=== PATIENT | female | born 1950 | race American Indian/Alaskan Native ===

== ENCOUNTER 2018-11-05 22:09 | Inpatient (IN) | payer MEDICARE, OTHER ==
[2018-11-05] MEDS ORDERED: TYLENOL PO ONE (22:53)
--- NOTE | 2018-11-05 23:50 | XRay Report ---
FINAL REPORT PROCEDURE: XR CHEST ROUTINE 2V TECHNIQUE: PA and lateral chest radiographs were obtained. CPT 96045 HISTORY: cough COMPARISON: 09/22/2016 FINDINGS: Heart: Normal. Mediastinum/Vessels: Normal. Lungs/Pleural space: Mild infiltrate left lower lung. Bony thorax: No acute osseous abnormality. Other: IMPRESSION: Slight infiltrate left lower lung.
--- NOTE | 2018-11-06 01:25 | Emergency Department Report ---
- General Chief Complaint: Chest Pain Stated Complaint: CHEST PAIN/COUGH Time Seen by Provider: 11/06/18 01:06 Source: patient Mode of arrival: Ambulatory Limitations: No Limitations - History of Present Illness Initial Comments: 68-year-old -[place]in[place] female presents to the emergency room for sore throat, chest pain with cough and diarrhea. Patient reports that this started on Tuesday. Patient reports that she last had Motrin on Tuesday night. Patient has a past medical history of insulin-dependent diabetes and hypertension, [place], COPD, stent placement. In triage patient had a low-grade fever of 99.7. Patient reports that she took gabapentin for pain management. Patient complains of a cough. MD Complaint: cough -: days(s) (2) Severity scale (0 -10): 10 Quality: sharp, aching Consistency: constant Improves With: nothing Worsens With: deep breaths Associated Symptoms: fever, sore throat, cough, chest pain, shortness of breath, diarrhea, hoarseness - Related Data Home Medications Medication Instructions Recorded Confirmed Last Taken Aspirin [Aspirin TAB] 81 mg PO QDAY 11/06/18 11/06/18 Unknown Previous Rx's Medication Instructions Recorded Last Taken Type AtorvaSTATin [Lipitor] 40 mg PO QHS #30 tablet 03/13/16 1 Day Ago Rx ~09/21/16 40 Clopidogrel [Plavix] 75 mg PO DAILY #30 tablet 03/13/16 1 Day Ago Rx ~09/21/16 75 Insulin Glargine,Hum.rec.anlog 18 unit SQ QHS #1000 units 03/13/16 1 Day Ago Rx [Lantus Solostar] ~09/21/16 18 Insulin Lispro [HumaLOG VIAL] 15 unit SQ TIDAC #1000 units 03/13/16 1 Day Ago Rx ~09/21/16 15 Lisinopril [Zestril TAB] 10 mg PO QDAY #30 tablet 03/13/16 1 Day Ago Rx ~09/21/16 10 Allergies Allergy/AdvReac Type Severity Reaction Status Date / Time metformin Allergy Unknown Verified 05/18/16 21:30 ED Review of Systems ROS: Stated complaint: CHEST PAIN/COUGH Other details as noted in HPI Constitutional: chills, fever ENT: throat pain Respiratory: cough, shortness of breath Cardiovascular: chest pain Gastrointestinal: diarrhea ED Past Medical Hx - Past Medical History Hx Hypertension: Yes Hx Heart Attack/AMI: Yes Hx Congestive Heart Failure: Yes Hx Diabetes: Yes Hx Asthma: Yes Hx COPD: Yes Additional medical history: vertigo - Surgical History Hx Coronary Stent: Yes Hx Cholecystectomy: Yes Hx Breast Surgery: Yes (lt mastectomy) Additional Surgical History: left lumpectomy,. cardiac stents - Social History Smoking Status: Never Smoker Substance Use Type: None - Medications Home Medications: Home Medications Medication Instructions Recorded Confirmed Last Taken Type AtorvaSTATin [Lipitor] 40 mg PO QHS #30 tablet 03/13/16 11/06/18 1 Day Ago Rx ~09/21/16 40 Clopidogrel [Plavix] 75 mg PO DAILY #30 tablet 03/13/16 11/06/18 1 Day Ago Rx ~09/21/16 75 Insulin Glargine,Hum.rec.anlog 18 unit SQ QHS #1000 units 03/13/16 11/06/18 1 Day Ago Rx [Lantus Solostar] ~09/21/16 18 Insulin Lispro [HumaLOG VIAL] 15 unit SQ TIDAC #1000 units 03/13/16 11/06/18 1 Day Ago Rx ~09/21/16 15 Lisinopril [Zestril TAB] 10 mg PO QDAY #30 tablet 03/13/16 11/06/18 1 Day Ago Rx ~09/21/16 10 Aspirin [Aspirin TAB] 81 mg PO QDAY 11/06/18 11/06/18 Unknown History ED Physical Exam - General Limitations: No Limitations General appearance: alert, in no apparent distress - Head Head exam: Present: atraumatic, normocephalic - Eye Eye exam: Present: EOMI - Expanded ENT Exam Expanded Mouth exam: Present: normal external inspection, muffled voice. Absent: droolin g Throat exam: Positive: tonsillar erythema, tonsillomegaly - Neck Neck exam: Present: tenderness, full ROM - Respiratory Respiratory exam: Present: rhonchi (left lower) - Cardiovascular Cardiovascular Exam: Present: tachycardia - GI/Abdominal GI/Abdominal exam: Present: soft, normal bowel sounds. Absent: distended, tenderness - Neurological Exam Neurological exam: Present: alert, oriented X3 - Psychiatric Psychiatric exam: Present: normal affect, normal mood - Skin Skin exam: Present: warm, dry, intact, normal color. Absent: rash ED Course Vital Signs 11/05/18 11/06/18 22:45 03:54 Temperature 99.7 F H 99.4 F Pulse Rate 114 H 117 H Respiratory 18 18 Rate Blood Pressure 157/93 Blood Pressure 141/76 [Right] O2 Sat by Pulse 98 96 Oximetry - Reevaluation(s) Reevaluation #1: 11/06/18 03:[address] King hospitalists for decision to admit patient since she has multiple comorbidities and infiltrates on a left lower lung. ED Medical Decision Making - Lab Data Result diagrams: 11/06/18 01:06 11/06/18 01:06 - Radiology Data Radiology results: report reviewed Patient: JOSSY SHAW MR#: [id number] : 1950 Acct:[id number] Age/Sex: 68 / F ADM Date: 11/05/18 Loc: ED Attending Dr: Ordering Physician: ED MD FAUSTINO Date of Service: 11/05/18 Procedure(s): XR chest routine 2V Accession Number(s): [id number] cc: ED MD FAUSTINO Fluoro Time In Minutes: FINAL REPORT PROCEDURE: XR CHEST ROUTINE 2V TECHNIQUE: PA and lateral chest radiographs were obtained. CPT 01517 HISTORY: cough COMPARISON: 09/22/2016 FINDINGS: Heart: Normal. Mediastinum/Vessels: Normal. Lungs/Pleural space: Mild infiltrate left lower lung. Bony thorax: No acute osseous abnormality. Other: IMPRESSION: Slight infiltrate left lower lung. Transcribed By: [facility] Dictated By: WISAM BARKER MD Electronically Authenticated By: WISAM BARKER MD Signed Date/Time: 11/05/182349 DD/ 48 TD/TT: 11/05/182348 - Medical Decision Making Patient has been evaluated by this provider in fast track. Patient is given tramadol for pain management. Chest x-ray shows slight left lower lung infiltrate Patient has a low-grade fever with a minimal elevation of her WBCs. Spoke to Dr. Rodriguez regarding patient's case. He recommends patient to be admitted called Dr. Fernando lrist to evaluate patient for admission. Critical care attestation.: If time is entered above; I have spent that time in minutes in the direct care of this critically ill patient, excluding procedure time. ED Disposition Clinical Impression: Community acquired pneumonia of left lower lobe of lung Type 2 diabetes mellitus Qualifiers: Diabetes mellitus terminal carman insulin use: with fdc use Diabetes mellitus complication status: with unspecified complications Qualified Code(s): E11.8 - Type 2 diabetes mellitus with unspecified complications Disposition: OP ADMIT IP TO THIS HOSP Is pt being admited?: Yes Does the pt Need Aspirin: Yes Condition: Stable Instructions: Diabetes Mellitus Type 2 in Adults (ED), Community-acquired Pneumonia (ED), Bacterial Pneumonia (ED) Referrals: AMISH JAUREGUI MD [Referring] - 3-5 Days
[2018-11-06] MEDS ORDERED: ULTRAM PO ONE (01:26)
[2018-11-06 01:30] LABS: Basophils # (Auto) 0.1 K/mm3 (0.0-0.1); Basophils % (Auto) 0.4 % (0.0-1.8); Eosinophils # (Auto) 0.2 K/mm3 (0.0-0.4); Hematocrit 34.6 % (30.3-42.9); Hemoglobin 11.9 gm/dl (10.1-14.3); Lymphocytes # (Auto) 2.3 K/mm3 (1.2-5.4); Lymphocytes % (Auto) 19.6 % (13.4-35.0); Mean Corpuscular HGB Conc 34 % (30-34); Mean Corpuscular Volume 89 fl (79-97); Monocytes # (Auto) 0.6 K/mm3 (0.0-0.8); Monocytes % (Auto) 5.3 % (0.0-7.3); Platelet Count 209 K/mm3 (140-440); Red Blood Count 3.89 M/mm3 (3.65-5.03); Red Cell Distribution Width 13.1 % (13.2-15.2)
[2018-11-06 01:54] LABS: Albumin 3.7 g/dL (3.9-5); BUN/Creatinine Ratio 18; Blood Urea Nitrogen 18 mg/dL (7-17); Calcium 9.6 mg/dL (8.4-10.2); Hemolysis Index 202
[2018-11-06 02:06] LABS: Alanine Aminotransferase 13 units/L (7-56)
--- NOTE | 2018-11-06 03:50 | History and Physical Report ---
History of Present Illness Date of examination: 11/06/18 History of present illness: 68-year-old woman with a history of hypertension, diabetes, breast cancer, COPD, coronary artery disease, CHF comes to the emergency room with complaints of hoarseness for 3 weeks. Also complaining of a cough productive of white rough:, Fever and chills. She had diarrhea for 3 days which is now resolved. Also complaining of food getting stuck in her throat, feels like she's going to choke Review of systems Constitutional: no weight loss, chills, fever Ears, eyes, nose, mouth and throat: no nasal congestion, no nasal discharge, no sinus pressure, no vision change, no red eye. Neck: No neck pain or rigidity. Cardiovascular: no palpitations, chest pain Respiratory: no cough, shortness of breath Gastrointestinal: no hematochezia, abdominal pain Genitourinary : no frequency , no hematuria Musculoskeletal: no joint swelling or muscle ache Integumentary: no rash, no pruritis Neurological: no parathesias, no focal weakness Endocrine: no cold or heat intolerance, no polyuria or polydipsia Hematologic/Lymphatic: no easy bruising, no easy bleeding, no gland swelling Allergic/Immunologic: no urticaria, no angioedema. PAST MEDICAL HISTORY: hypertension, diabetes, breast cancer, COPD, coronary artery disease, CHF PAST SURGICAL HISTORY: Lumpectomy SOCIAL HISTORY: Denies alcohol, drugs, tobacco FAMILY HISTORY: Hypertension Medications and Allergies Allergies Allergy/AdvReac Type Severity Reaction Status Date / Time metformin Allergy Unknown Verified 05/18/16 21:30 Home Medications Medication Instructions Recorded Confirmed Last Taken Type AtorvaSTATin [Lipitor] 40 mg PO QHS #30 tablet 03/13/16 11/06/18 1 Day Ago Rx ~09/21/16 40 Clopidogrel [Plavix] 75 mg PO DAILY #30 tablet 03/13/16 11/06/18 1 Day Ago Rx ~09/21/16 75 Insulin Glargine,Hum.rec.anlog 18 unit SQ QHS #1000 units 03/13/16 11/06/18 1 Day Ago Rx [Lantus Solostar] ~09/21/16 18 Insulin Lispro [HumaLOG VIAL] 15 unit SQ TIDAC #1000 units 03/13/16 11/06/18 1 Day Ago Rx ~09/21/16 15 Lisinopril [Zestril TAB] 10 mg PO QDAY #30 tablet 03/13/16 11/06/18 1 Day Ago Rx ~09/21/16 10 Aspirin [Aspirin TAB] 81 mg PO QDAY 11/06/18 11/06/18 Unknown History Gabapentin [Neurontin] 300 mg PO Q6H PRN 11/07/18 11/07/18 Unknown History Amoxicillin/Potassium Clav 1 each PO BID #10 tablet 11/08/18 Unknown Rx [Augmentin 875-125 Tablet] ISOSORBIDE MONOnitrate [Imdur ER] 30 mg PO QDAY #30 tablet 11/08/18 Unknown Rx Nystas/Diphen/Xyl Visc/Mylanta 30 ml MM Q4H PRN 5 Days ml 11/08/18 Unknown Rx [Magic Mouthwash] Carvedilol [Coreg] 3.125 mg PO BID #60 tablet 11/09/18 Unknown Rx Exam - Physical Exam Narrative exam: General Apperance: The patient lying in bed, breathing comfortable HEENT: Normocephalic, atraumatic. Pupils equally round and reactive to light, EOMI, no sclericterus or JVD or thyromegaly or nodule. , no carotid bruit, mucous membranes moist, no exudate or erythema Heart: S1-S2, regular is rhythm Lungs: Crackles at the left base , breathing comfortable Abdomen: Positive bowel sounds, soft, nontender, nondistended, no organomegaly Extremities: No edema cyanosis clubbing Skin: no rash, nodule, warm and dry Neuro: cranial nerves 2-12 intact, speech is fluent, motor/sensory intact - Constitutional Vitals: Temp Pulse Resp BP Pulse Ox 99.7 F H 114 H 18 157/93 98 11/05/18 22:45 11/05/18 22:45 11/05/18 22:45 11/05/18 22:45 11/05/18 22:45 Results - Labs CBC & Chem 7: 11/10/18 05:41 11/10/18 05:41 Labs: Abnormal lab results 11/06/18 11/06/18 Range/Units 01:06 01:06 WBC 11.8 H (4.5-11.0) K/mm3 RDW 13.1 L (13.2-15.2) % Seg Neutrophils % 72.7 H (40.0-70.0) % Seg Neutrophils # 8.6 H (1.8-7.7) K/mm3 Sodium 136 L (137-145) mmol/L Chloride 96.4 L (98-107) mmol/L BUN 18 H (7-17) mg/dL Glucose 255 H (65-100) mg/dL Alkaline Phosphatase 139 H (35-129) units/L Albumin 3.7 L (3.9-5) g/dL - Imaging and Cardiology EKG: image reviewed Chest x-ray: report reviewed Assessment and Plan Assessment Community-acquired pneumonia Dysphagia UTI hypertension diabetes breast cancer COPD coronary artery disease CHF, stable Plan Admit to medicine Start IV antibiotic alcohol cultures Consult GI, start IV fluid Check fingersticks, continue appropriate outpatient medications DVT prophylaxis
[2018-11-06 04:07] LABS: Bacteria,Urine 1+ /HPF (Negative); Bilirubin,Urine NEG (Negative); Blood,Urine NEG (Negative); Color,Urine Yellow (Yellow); Mucus,Urine FEW /HPF; Protein,Urine <15 mg/dL mg/dL (Negative); Urobilinogen,Urine < 2.0 mg/dL (<2.0)
[2018-11-06] MEDS ORDERED: TYLENOL PO PRN (05:07)
[2018-11-06] MEDS ORDERED: D50W (25GM) Syringe IV PRN (05:07)
[2018-11-06] MEDS ORDERED: ZOFRAN IV PRN (05:07)
[2018-11-06] MEDS ORDERED: SODIUM CHLORIDE FLUSH SYRINGE 10 ML IV PRN (05:07)
[2018-11-06] MEDS: LEVAQUIN 750MG/150ML 750 MG/150 ML BAG IV SCH (05:40)
[2018-11-06] MEDS ORDERED: HumaLOG SUB-Q SCH (06:00)
[2018-11-06] MEDS ORDERED: NACL 0.45% 1000 ML 1,000 ML IV SCH (06:00)
[2018-11-06 06:47] LABS: BUN/Creatinine Ratio 19; Blood Urea Nitrogen 17 mg/dL (7-17); Calcium 9.4 mg/dL (8.4-10.2); Hemolysis Index 32
[2018-11-06] MEDS: DUONEB *Not for PRN Use IH SCH ×2 (08:14→14:24)
[2018-11-06 08:15] LABS: Basophils # (Auto) 0.1 K/mm3 (0.0-0.1); Basophils % (Auto) 0.5 % (0.0-1.8); Eosinophils # (Auto) 0.1 K/mm3 (0.0-0.4); Eosinophils % (Auto) 0.9 % (0.0-4.3); Hematocrit 33.6 % (30.3-42.9); Hemoglobin 11.6 gm/dl (10.1-14.3); Lymphocytes # (Auto) 1.1 K/mm3 (1.2-5.4); Lymphocytes % (Auto) 8.1 % (13.4-35.0); Mean Corpuscular HGB Conc 34 % (30-34); Mean Corpuscular Volume 88 fl (79-97); Monocytes # (Auto) 0.7 K/mm3 (0.0-0.8); Monocytes % (Auto) 5.1 % (0.0-7.3); Platelet Count 180 K/mm3 (140-440); Red Blood Count 3.81 M/mm3 (3.65-5.03); Red Cell Distribution Width 13.4 % (13.2-15.2)
[2018-11-06] MEDS ORDERED: LOVENOX SUB-Q SCH (10:00)
--- NOTE | 2018-11-06 10:18 | Gastroenterology Consultation ---
History of Present Illness - Reason for Consult Consult date: 11/06/18 dysphagia Requesting physician: AYAN ESPINAL - History of Present Illness This is a 68 yo female with pmh of HTN, CAD on plavix, DM, and h/o pancreatitis admitted for pneumonia after presenting with hoarseness and nasal congestion. GI consulted for dysphagia work up. She is a poor historian but reports having choking with solids for several months to a year. She does ok with swallowing liquids. She states she had problems with her teeth and need to be pulled but has not been able to see a dentist. Reports weight loss but unknown amount. Past History Past Medical History: CAD, diabetes, hypertension Social history: no significant social history Family history: no significant family history Medications and Allergies Allergies Allergy/AdvReac Type Severity Reaction Status Date / Time metformin Allergy Unknown Verified 05/18/16 21:30 Home Medications Medication Instructions Recorded Confirmed Last Taken Type AtorvaSTATin [Lipitor] 40 mg PO QHS #30 tablet 03/13/16 11/06/18 1 Day Ago Rx ~09/21/16 40 Clopidogrel [Plavix] 75 mg PO DAILY #30 tablet 03/13/16 11/06/18 1 Day Ago Rx ~09/21/16 75 Insulin Glargine,Hum.rec.anlog 18 unit SQ QHS #1000 units 03/13/16 11/06/18 1 Day Ago Rx [Lantus Solostar] ~09/21/16 18 Insulin Lispro [HumaLOG VIAL] 15 unit SQ TIDAC #1000 units 03/13/16 11/06/18 1 Day Ago Rx ~09/21/16 15 Lisinopril [Zestril TAB] 10 mg PO QDAY #30 tablet 03/13/16 11/06/18 1 Day Ago Rx ~09/21/16 10 Aspirin [Aspirin TAB] 81 mg PO QDAY 11/06/18 11/06/18 Unknown History Active Meds: Active Medications Acetaminophen (Tylenol) 650 mg PO Q4H PRN PRN Reason: Pain MILD(1-3)/Fever >100.5/[place] Albuterol/Ipratropium (Duoneb *Not For Prn Use*) 1 ampul IH Q6HRT [facility] Last Admin: 11/06/18 08:14 Dose: 1 ampul Documented by: Atorvastatin Calcium (Lipitor) 40 mg PO QHS [facility] Clopidogrel Bisulfate (Plavix) 75 mg PO DAILY [facility] Dextrose (D50w (25gm) Syringe) 50 ml IV PRN PRN PRN Reason: Hypoglycemia Enoxaparin Sodium (Lovenox) 40 mg SUB-Q QDAY@1000 [place] Levofloxacin/Dextrose (Levaquin 750mg/150ml) 750 mg in 150 mls @ 100 mls/hr IV Q24HR@0600 [facility] Last Admin: 11/06/18 05:40 Dose: 100 mls/hr Documented by: Sodium Chloride (Nacl 0.45% 1000 Ml) 1,000 mls @ 50 mls/hr IV DIRECT [facility] Insulin Human Lispro (Humalog) 0 unit SUB-Q Q6HR [facility]; Protocol Last Admin: 11/06/18 07:36 Dose: 3 unit Documented by: Lisinopril (Zestril) 10 mg PO QDAY [facility] Ondansetron HCl (Zofran) 4 mg IV Q8H PRN PRN Reason: Nausea And Vomiting Pneumococcal Polyvalent Vaccine (Pneumovax 23) 0.5 ml IM .ONCE ONE Stop: 11/06/18 12:01 Sodium Chloride (Sodium Chloride Flush Syringe 10 Ml) 10 ml IV BID [facility] Sodium Chloride (Sodium Chloride Flush Syringe 10 Ml) 10 ml IV PRN PRN PRN Reason: LINE FLUSH Review of Systems - Review of Systems Constitutional: weight loss Ears, Nose, Throat: no decreased hearing Cardiovascular: no chest pain Respiratory: cough, shortness of breath Gastrointestinal: no abdominal pain, no nausea, no vomiting, no hematemesis, no BRBPR Musculoskeletal: joint pain Integumentary: deferred Exam - Constitutional Vital Signs: Temp Pulse Resp BP Pulse Ox 100.2 F H 105 H 19 150/86 95 11/06/18 08:12 11/06/18 08:16 11/06/18 08:16 11/06/18 08:12 11/06/18 08:26 General appearance: no acute distress, well-nourished - EENT ENT: hearing intact, clear oral mucosa, dentition normal - Neck Neck: supple, normal ROM, no masses or JVD - Respiratory Respiratory effort: normal Respiratory: bilateral: CTA - Breasts Breasts: deferred - Cardiovascular Rhythm: regular Heart Sounds: Present: S1 & S2. Absent: gallop, rub Extremities: pulses intact, No edema, normal color, Full ROM - Integumentary Integumentary: Present: clear, warm, dry - Neurologic Neurological: alert and oriented x3 - Psychiatric Psychiatric: appropriate mood/affect - Labs CBC & Chem 7: 11/06/18 07:50 11/06/18 06:06 Lab Results: Laboratory Results - last 24 hr 11/06/18 11/06/18 11/06/18 01:06 01:06 01:06 WBC 11.8 H RBC 3.89 Hgb 11.9 Hct 34.6 MCV 89 MCH 31 MCHC 34 RDW 13.1 L Plt Count 209 Lymph % (Auto) 19.6 [place] % (Auto) 5.3 Eos % (Auto) 2.0 Baso % (Auto) 0.4 Lymph # 2.3 [place] # 0.6 Eos # 0.2 Baso # 0.1 Seg Neutrophils % 72.7 H Seg Neutrophils # 8.6 H Sodium 136 L Potassium 4.8 Chloride 96.4 L Carbon Dioxide 26 Anion Gap 18 BUN 18 H Creatinine 1.0 Estimated GFR > 60 BUN/Creatinine Ratio 18 Glucose 255 H POC Glucose Hemoglobin A1c Calcium 9.6 Total Bilirubin 0.30 AST 23 ALT 13 Alkaline Phosphatase 139 H Troponin T < 0.010 Total Protein 8.1 Albumin 3.7 L Albumin/Globulin Ratio 0.8 Urine Color Urine Turbidity Urine pH Ur Specific [place] Urine Protein Urine Glucose (UA) Urine Ketones Urine Blood Urine Nitrite Urine Bilirubin Urine Urobilinogen Ur Leukocyte Esterase Urine WBC (Auto) Urine RBC (Auto) U Epithel Cells (Auto) Urine Bacteria (Auto) Ur Transition Epith Cell Urine Mucus 11/06/18 11/06/18 11/06/18 03:40 06:06 07:31 WBC RBC Hgb Hct MCV MCH MCHC RDW Plt Count Lymph % (Auto) [place] % (Auto) Eos % (Auto) Baso % (Auto) Lymph # [place] # Eos # Baso # Seg Neutrophils % Seg Neutrophils # Sodium 131 L Potassium 4.4 Chloride 95.6 L Carbon Dioxide 19 L D Anion Gap 21 BUN 17 Creatinine 0.9 Estimated GFR > 60 BUN/Creatinine Ratio 19 Glucose 307 H POC Glucose 289 H Hemoglobin A1c Calcium 9.4 Total Bilirubin AST ALT Alkaline Phosphatase Troponin T Total Protein Albumin Albumin/Globulin Ratio Urine Color Yellow Urine Turbidity Clear Urine pH 5.0 Ur Specific [place] 1.015 Urine Protein <15 mg/dl Urine Glucose (UA) 50 Urine Ketones Neg Urine Blood Neg Urine Nitrite Neg Urine Bilirubin Neg Urine Urobilinogen < 2.0 Ur Leukocyte Esterase Mod Urine WBC (Auto) 11.0 H Urine RBC (Auto) 2.0 U Epithel Cells (Auto) 3.0 Urine Bacteria (Auto) 1+ Ur Transition Epith Cell 1 Urine Mucus Few 11/06/18 11/06/18 07:50 07:50 WBC 13.9 H RBC 3.81 Hgb 11.6 Hct 33.6 MCV 88 MCH 30 MCHC 34 RDW 13.4 Plt Count 180 Lymph % (Auto) 8.1 L [place] % (Auto) 5.1 Eos % (Auto) 0.9 Baso % (Auto) 0.5 Lymph # 1.1 L [place] # 0.7 Eos # 0.1 Baso # 0.1 Seg Neutrophils % 85.4 H Seg Neutrophils # 11.9 H Sodium Potassium Chloride Carbon Dioxide Anion Gap BUN Creatinine Estimated GFR BUN/Creatinine Ratio Glucose POC Glucose Hemoglobin A1c 12.5 H Calcium Total Bilirubin AST ALT Alkaline Phosphatase Troponin T Total Protein Albumin Albumin/Globulin Ratio Urine Color Urine Turbidity Urine pH Ur Specific [place] Urine Protein Urine Glucose (UA) Urine Ketones Urine Blood Urine Nitrite Urine Bilirubin Urine Urobilinogen Ur Leukocyte Esterase Urine WBC (Auto) Urine RBC (Auto) U Epithel Cells (Auto) Urine Bacteria (Auto) Ur Transition Epith Cell Urine Mucus Assessment and Plan This is a 68 yo female with pmh of HTN, CAD on plavix, DM, and h/o pancreatitis admitted for pneumonia after presenting with hoarseness and nasal congestion. GI consulted for dysphagia work up. - Patient Problems (1) Dysphagia Current Visit: Yes Status: Acute Plan to address problem: Chronic dysphagia to solids only. - may be due to mechanical obstruction. - recommend barium swallow esophagram to evaluate. - patient on plavix and would need to hold for 5 days if needs to have endoscopy, which can be arranged as outpatient as well. - will follow.
[2018-11-06] MEDS: ZESTRIL PO SCH (10:19)
[2018-11-06] MEDS: PLAVIX PO SCH (10:19)
--- NOTE | 2018-11-06 11:03 | Progress Note ---
Assessment and Plan Assessment and plan: Sepsis secondary to left lower lobe pneumonia - Evidenced by leukocytosis and fever - Continue IV Levaquin Dysphagia, with pain on swallowing - We will do a cervical x-ray -GI consulted and will do EGD Hypertension -Continue all medications Diabetes mellitus his hyperglycemia -Uncontrolled -We'll check A1c -We'll resume home dose of insulin. DVT prophylaxis -continue Lovenox History Interval history: Patient was seen and evaluated this morning, patient's complaining dysphagia and throat pain. Hospitalist Physical - Physical exam Narrative exam: Not in cardiopulmonary distress. The patient appeared well nourished and normally developed. Vital signs as documented. Head exam is unremarkable. No scleral icterus . Neck is without jugular venous distension, thyromegaly, or carotid bruits. Lungs are clear to auscultation. Cardiac exam reveals regular rate and Rhythm. First and second heart sounds normal. No murmurs, rubs or gallops. Abdominal exam reveals normal bowel sounds, no masses, no organomegaly and no aortic enlargement. Extremities are nonedematous and both femoral and pedal pulses are normal. ACCOUNT REPRESENTATIVE: Alert and oriented 3. No focal weakness. - Constitutional Vitals: Temp Pulse Resp BP Pulse Ox 100.2 F H 105 H 19 150/86 95 11/06/18 08:12 11/06/18 08:16 11/06/18 08:16 11/06/18 08:12 11/06/18 08:26 Results - Labs CBC & Chem 7: 11/06/18 07:50 11/06/18 06:06 Labs: Laboratory Last Values WBC 13.9 K/mm3 (4.5-11.0) H 11/06/18 07:50 RBC 3.81 M/mm3 (3.65-5.03) 11/06/18 07:50 Hgb 11.6 gm/dl (10.1-14.3) 11/06/18 07:50 Hct 33.6 % (30.3-42.9) 11/06/18 07:50 MCV 88 fl (79-97) 11/06/18 07:50 MCH 30 pg (28-32) 11/06/18 07:50 MCHC 34 % (30-34) 11/06/18 07:50 RDW 13.4 % (13.2-15.2) 11/06/18 07:50 Plt Count 180 K/mm3 (140-440) 11/06/18 07:50 Lymph % (Auto) 8.1 % (13.4-35.0) L 11/06/18 07:50 [place] % (Auto) 5.1 % (0.0-7.3) 11/06/18 07:50 Eos % (Auto) 0.9 % (0.0-4.3) 11/06/18 07:50 Baso % (Auto) 0.5 % (0.0-1.8) 11/06/18 07:50 Lymph # 1.1 K/mm3 (1.2-5.4) L 11/06/18 07:50 [place] # 0.7 K/mm3 (0.0-0.8) 11/06/18 07:50 Eos # 0.1 K/mm3 (0.0-0.4) 11/06/18 07:50 Baso # 0.1 K/mm3 (0.0-0.1) 11/06/18 07:50 Seg Neutrophils % 85.4 % (40.0-70.0) H 11/06/18 07:50 Seg Neutrophils # 11.9 K/mm3 (1.8-7.7) H 11/06/18 07:50 Sodium 131 mmol/L (137-145) L 11/06/18 06:06 Potassium 4.4 mmol/L (3.6-5.0) 11/06/18 06:06 Chloride 95.6 mmol/L (98-107) L 11/06/18 06:06 Carbon Dioxide 19 mmol/L (22-30) L D 11/06/18 06:06 Anion Gap 21 mmol/L 11/06/18 06:06 BUN 17 mg/dL (7-17) 11/06/18 06:06 Creatinine 0.9 mg/dL (0.7-1.2) 11/06/18 06:06 Estimated GFR > 60 ml/min 11/06/18 06:06 BUN/Creatinine Ratio 19 % 11/06/18 06:06 Glucose 307 mg/dL (65-100) H 11/06/18 06:06 POC Glucose 289 (70-105) H 11/06/18 07:31 Hemoglobin A1c 12.5 % (4-6) H 11/06/18 07:50 Calcium 9.4 mg/dL (8.4-10.2) 11/06/18 06:06 Total Bilirubin 0.30 mg/dL (0.1-1.2) 11/06/18 01:06 AST 23 units/L (5-40) 11/06/18 01:06 ALT 13 units/L (7-56) 11/06/18 01:06 Alkaline Phosphatase 139 units/L (35-129) H 11/06/18 01:06 Troponin T < 0.010 ng/mL (0.00-0.029) 11/06/18 01:06 Total Protein 8.1 g/dL (6.3-8.2) 11/06/18 01:06 Albumin 3.7 g/dL (3.9-5) L 11/06/18 01:06 Albumin/Globulin Ratio 0.8 % 11/06/18 01:06 Urine Color Yellow (Yellow) 11/06/18 03:40 Urine Turbidity Clear (Clear) 11/06/18 03:40 Urine pH 5.0 (5.0-7.0) 11/06/18 03:40 Ur Specific [place] 1.015 (1.003-1.030) 11/06/18 03:40 Urine Protein <15 mg/dl mg/dL (Negative) 11/06/18 03:40 Urine Glucose (UA) 50 mg/dL (Negative) 11/06/18 03:40 Urine Ketones Neg mg/dL (Negative) 11/06/18 03:40 Urine Blood Neg (Negative) 11/06/18 03:40 Urine Nitrite Neg (Negative) 11/06/18 03:40 Urine Bilirubin Neg (Negative) 11/06/18 03:40 Urine Urobilinogen < 2.0 mg/dL (<2.0) 11/06/18 03:40 Ur Leukocyte Esterase Mod (Negative) 11/06/18 03:40 Urine WBC (Auto) 11.0 /HPF (0.0-6.0) H 11/06/18 03:40 Urine RBC (Auto) 2.0 /HPF (0.0-6.0) 11/06/18 03:40 U Epithel Cells (Auto) 3.0 /HPF (0-13.0) 11/06/18 03:40 Urine Bacteria (Auto) 1+ /HPF (Negative) 11/06/18 03:40 Ur Transition Epith Cell 1 /HPF 11/06/18 03:40 Urine Mucus Few /HPF 11/06/18 03:40
--- NOTE | 2018-11-06 11:56 | Fluoroscopy Report ---
BARIUM SWALLOW: History: Dysphagia. Study 2 fluoroscopic images were captured. Deglutition was normal. No aspiration. The esophagus is normal caliber and mucosal pattern throughout. No obvious mass or obstruction. A small sliding hiatal hernia was witnessed during this exam. Occasional tertiary contractions were witnessed in the esophagus consistent with mild esophageal spasm. No episodes of reflux were demonstrated. IMPRESSION: Small sliding hiatal hernia. Occasional episodes of esophageal spasm were witnessed. Consider mild esophageal dysmotility.
[2018-11-06] MEDS ORDERED: AFLURIA QUAD 2018-2019 SYRINGE IM ONE (12:00)
[2018-11-06] MEDS ORDERED: PNEUMOVAX 23 IM ONE (12:00)
[2018-11-06] MEDS: LOVENOX SUB-Q SCH (13:40)
[2018-11-06] MEDS: SODIUM CHLORIDE FLUSH SYRINGE 10 ML IV SCH ×2 (13:41→21:50)
[2018-11-06] MEDS: HumaLOG SUB-Q SCH ×2 (13:41→18:34)
[2018-11-06] MEDS: PERCOCET 5/325 PO PRN ×2 (13:56→18:51)
[2018-11-06] MEDS: LANTUS SUB-Q SCH (21:49)
[2018-11-06] MEDS ORDERED: LANTUS SUB-Q SCH (22:00)
[2018-11-07] MEDS: PERCOCET 5/325 PO PRN ×3 (01:27→21:02)
[2018-11-07] MEDS: DUONEB *Not for PRN Use IH SCH ×4 (02:01→21:08)
[2018-11-07] MEDS: LEVAQUIN 750MG/150ML 750 MG/150 ML BAG IV SCH (05:12)
[2018-11-07] MEDS: HumaLOG SUB-Q SCH ×3 (08:44→17:49)
[2018-11-07 09:06] LABS: Basophils % (Auto) 0.3 % (0.0-1.8); Eosinophils # (Auto) 0.2 K/mm3 (0.0-0.4); Eosinophils % (Auto) 1.6 % (0.0-4.3); Hematocrit 33.1 % (30.3-42.9); Lymphocytes # (Auto) 1.8 K/mm3 (1.2-5.4); Lymphocytes % (Auto) 14.4 % (13.4-35.0); Mean Corpuscular HGB Conc 33 % (30-34); Mean Corpuscular Volume 90 fl (79-97); Monocytes # (Auto) 0.7 K/mm3 (0.0-0.8); Monocytes % (Auto) 5.3 % (0.0-7.3); Platelet Count 176 K/mm3 (140-440); Red Cell Distribution Width 13.2 % (13.2-15.2)
[2018-11-07 09:16] LABS: Calcium 9.5 mg/dL (8.4-10.2)
[2018-11-07] MEDS: LOVENOX SUB-Q SCH (09:56)
[2018-11-07] MEDS: ZESTRIL PO SCH (09:56)
[2018-11-07] MEDS: PLAVIX PO SCH (09:56)
--- NOTE | 2018-11-07 10:04 | Progress Note ---
Assessment and Plan Assessment and plan: 68-year-old in with a history of hypertension, diabetes, breast cancer, COPD, coronary artery disease, CHF comes to the emergency room with complaints of hoarseness for 3 weeks. Also complaining of a cough productive of white rough:, Fever and chills. She had diarrhea for 3 days which is now resolved. Also complaining of food getting stuck in her throat, feels like she's going to choke Sepsis secondary to left lower lobe pneumonia - Evidenced by leukocytosis and fever - Continue IV Levaquin Dysphagia, with pain on swallowing -GI following. -GI consulted and will do EGD -Continue Plavix outpatient EGD planned. -barium swallow reports some spasm, await GI re-evaluation Hypertension -Continue all medications Diabetes mellitus his hyperglycemia -Uncontrolled -We'll check A1c -We'll resume home dose of insulin. DVT prophylaxis -continue Lovenox History Interval history: Patients seen and examined, still complaints of oral pain. Plans to follow with dentist outpatient. Otherwise no new complaints. tolerating some clear liquids Hospitalist Physical - Physical exam Narrative exam: VITAL SIGNS: Reviewed. GENERAL: The patient appeared well nourished and normally developed. Vital signs as documented. HEAD: No signs of head trauma. EYES: Pupils are equal. Extraocular motions intact. EARS: Hearing grossly intact. MOUTH: Poor dental hygiene NECK: No adenopathy, no JVD. CHEST: Chest with clear breath sounds bilaterally. No wheezes, rales, or rhonchi. CARDIAC: Regular rate and rhythm. S1 and S2, without murmurs, gallops, or rubs. VASCULAR: No Edema. Peripheral pulses normal and equal in all extremities. ABDOMEN: Soft, without detectable tenderness. No sign of distention. No rebound or guarding, and no masses palpated. Bowel Sounds normal. MUSCULOSKELETAL: Good range of motion of all major joints. Extremities without clubbing, cyanosis or edema. NEUROLOGIC EXAM: Alert and oriented x 3. No focal sensory or strength deficits. Speech normal. Follows commands. PSYCHIATRIC: Mood normal. SKIN: No rash or lesions. - Constitutional Vitals: Temp Pulse Resp BP Pulse Ox 98.5 F 95 H 18 124/75 96 11/07/18 07:09 11/07/18 09:56 11/07/18 07:09 11/07/18 09:56 11/07/18 07:09 Results - Labs CBC & Chem 7: 11/07/18 07:58 11/07/18 07:58 Labs: Laboratory Last Values WBC 12.8 K/mm3 (4.5-11.0) H 11/07/18 07:58 RBC 3.70 M/mm3 (3.65-5.03) 11/07/18 07:58 Hgb 11.0 gm/dl (10.1-14.3) 11/07/18 07:58 Hct 33.1 % (30.3-42.9) 11/07/18 07:58 MCV 90 fl (79-97) 11/07/18 07:58 MCH 30 pg (28-32) 11/07/18 07:58 MCHC 33 % (30-34) 11/07/18 07:58 RDW 13.2 % (13.2-15.2) 11/07/18 07:58 Plt Count 176 K/mm3 (140-440) 11/07/18 07:58 Lymph % (Auto) 14.4 % (13.4-35.0) 11/07/18 07:58 Morgan % (Auto) 5.3 % (0.0-7.3) 11/07/18 07:58 Eos % (Auto) 1.6 % (0.0-4.3) 11/07/18 07:58 Baso % (Auto) 0.3 % (0.0-1.8) 11/07/18 07:58 Lymph # 1.8 K/mm3 (1.2-5.4) 11/07/18 07:58 Morgan # 0.7 K/mm3 (0.0-0.8) 11/07/18 07:58 Eos # 0.2 K/mm3 (0.0-0.4) 11/07/18 07:58 Baso # 0.0 K/mm3 (0.0-0.1) 11/07/18 07:58 Seg Neutrophils % 78.4 % (40.0-70.0) H 11/07/18 07:58 Seg Neutrophils # 10.0 K/mm3 (1.8-7.7) H 11/07/18 07:58 Sodium 135 mmol/L (137-145) L 11/07/18 07:58 Potassium 4.0 mmol/L (3.6-5.0) 11/07/18 07:58 Chloride 91.9 mmol/L (98-107) L 11/07/18 07:58 Carbon Dioxide 29 mmol/L (22-30) D 11/07/18 07:58 Anion Gap 18 mmol/L 11/07/18 07:58 BUN 15 mg/dL (7-17) 11/07/18 07:58 Creatinine 1.1 mg/dL (0.7-1.2) 11/07/18 07:58 Estimated GFR 60 ml/min 11/07/18 07:58 BUN/Creatinine Ratio 14 % 11/07/18 07:58 Glucose 285 mg/dL (65-100) H 11/07/18 07:58 POC Glucose 260 (70-105) H 11/07/18 07:11 Hemoglobin A1c 12.5 % (4-6) H 11/06/18 07:50 Calcium 9.5 mg/dL (8.4-10.2) 11/07/18 07:58 Total Bilirubin 0.30 mg/dL (0.1-1.2) 11/06/18 01:06 AST 23 units/L (5-40) 11/06/18 01:06 ALT 13 units/L (7-56) 11/06/18 01:06 Alkaline Phosphatase 139 units/L (35-129) H 11/06/18 01:06 Troponin T < 0.010 ng/mL (0.00-0.029) 11/06/18 01:06 Total Protein 8.1 g/dL (6.3-8.2) 11/06/18 01:06 Albumin 3.7 g/dL (3.9-5) L 11/06/18 01:06 Albumin/Globulin Ratio 0.8 % 11/06/18 01:06 Urine Color Yellow (Yellow) 11/06/18 03:40 Urine Turbidity Clear (Clear) 11/06/18 03:40 Urine pH 5.0 (5.0-7.0) 11/06/18 03:40 Ur Specific [place] 1.015 (1.003-1.030) 11/06/18 03:40 Urine Protein <15 mg/dl mg/dL (Negative) 11/06/18 03:40 Urine Glucose (UA) 50 mg/dL (Negative) 11/06/18 03:40 Urine Ketones Neg mg/dL (Negative) 11/06/18 03:40 Urine Blood Neg (Negative) 11/06/18 03:40 Urine Nitrite Neg (Negative) 11/06/18 03:40 Urine Bilirubin Neg (Negative) 11/06/18 03:40 Urine Urobilinogen < 2.0 mg/dL (<2.0) 11/06/18 03:40 Ur Leukocyte Esterase Mod (Negative) 11/06/18 03:40 Urine WBC (Auto) 11.0 /HPF (0.0-6.0) H 11/06/18 03:40 Urine RBC (Auto) 2.0 /HPF (0.0-6.0) 11/06/18 03:40 U Epithel Cells (Auto) 3.0 /HPF (0-13.0) 11/06/18 03:40 Urine Bacteria (Auto) 1+ /HPF (Negative) 11/06/18 03:40 Ur Transition Epith Cell 1 /HPF 11/06/18 03:40 Urine Mucus Few /HPF 11/06/18 03:40 Nutrition/Malnutrition Assess - Dietary Evaluation Nutrition/Malnutrition Findings: Nutrition Notes Start: 11/06/18 16:00 Freq: Status: Active Protocol: Document 11/06/18 16:00 EB (Rec: 11/06/18 16:13 [id number]) Co-Sign 11/06/18 16:00 Nutrition Notes Need for Assessment generated from: sterile supervisor Initial or Follow up Brief Note Current Diagnosis COPD Coronary Artery Disease Diabetes Hypertension Heart Failure Other Pertinent Diagnosis Breast CA Current Diet NPO Labs/Tests Reviewed Pertinent Medications Reviewed Height 5 ft 3 in Weight 69 kg [place] Body Weight (kg) 52.27 BMI 26.9 Subjective/Other Information Pt screened for new onset DM. Pt reports she has had DM for past several years and has been managing it via medication and is aware of correct diet to compliment medication mangagment. Nutrition Intervention Revisit per MD consult or patient Sign Off request:
[2018-11-07] MEDS: SODIUM CHLORIDE FLUSH SYRINGE 10 ML IV SCH ×2 (12:28→22:11)
[2018-11-07] MEDS ORDERED: PROVENTIL IH PRN (13:47)
--- NOTE | 2018-11-07 15:17 | Gastroenterology Progress Note ---
Addendum entered and electronically signed by PAZ PETERSEN MD 11/07/18 16:52: Patient seen and examined on 11/07/2018. Esophagram reviewed. Tolerating current diet. Recommend follow up outpatient for endoscopy with plavix held for 5 days) Will sign off. Please call with questions. Original Note: Assessment and Plan This is a 68 yo female with pmh of HTN, CAD on plavix, DM, and h/o pancreatitis admitted for pneumonia after presenting with hoarseness and nasal congestion. GI consulted for dysphagia work up. - Patient Problems (1) Dysphagia Current Visit: Yes Status: Acute Plan to address problem: Chronic dysphagia to solids only -esophagram showed small sliding hiatal hernia and occasional esophageal spasms -currently tolerated diet -no plan for scope at this time (on plavix and would need to be held x 5 days prior to endoscopy) -patient okay to be d/c per GI standpoint with further workup as outpatient -will sign off, please call if needed Subjective Date of service: 11/07/18 Principal diagnosis: dysphagia Interval history: No acute distress. Tolerating diet. Objective - Constitutional Vitals: Temp Pulse Resp BP Pulse Ox 98.5 F 95 H 18 124/75 96 11/07/18 07:09 11/07/18 09:56 11/07/18 07:09 11/07/18 09:56 11/07/18 10:00 General appearance: no acute distress - Respiratory Respiratory: bilateral: CTA - Cardiovascular Rhythm: regular Heart Sounds: Present: S1 & S2 - Gastrointestinal General gastrointestinal: Present: soft, non-tender, non-distended, normal bowel sounds - Labs CBC & Chem 7: 11/07/18 07:58 11/07/18 07:58 Labs: Laboratory Results - last 24 hr 11/06/18 11/06/18 11/07/18 16:21 21:16 07:11 WBC RBC Hgb Hct MCV MCH MCHC RDW Plt Count Lymph % (Auto) [place] % (Auto) Eos % (Auto) Baso % (Auto) Lymph # Cobb # Eos # Baso # Seg Neutrophils % Seg Neutrophils # Sodium Potassium Chloride Carbon Dioxide Anion Gap BUN Creatinine Estimated GFR BUN/Creatinine Ratio Glucose POC Glucose 150 H 74 260 H Calcium Troponin T 11/07/18 11/07/18 11/07/18 07:58 07:58 11:57 WBC 12.8 H RBC 3.70 Hgb 11.0 Hct 33.1 MCV 90 MCH 30 MCHC 33 RDW 13.2 Plt Count 176 Lymph % (Auto) 14.4 Cobb % (Auto) 5.3 Eos % (Auto) 1.6 Baso % (Auto) 0.3 Lymph # 1.8 Cobb # 0.7 Eos # 0.2 Baso # 0.0 Seg Neutrophils % 78.4 H Seg Neutrophils # 10.0 H Sodium 135 L Potassium 4.0 Chloride 91.9 L Carbon Dioxide 29 D Anion Gap 18 BUN 15 Creatinine 1.1 Estimated GFR 60 BUN/Creatinine Ratio 14 Glucose 285 H POC Glucose 230 H Calcium 9.5 Troponin T 11/07/18 13:32 WBC RBC Hgb Hct MCV MCH MCHC RDW Plt Count Lymph % (Auto) Cobb % (Auto) Eos % (Auto) Baso % (Auto) Lymph # Cobb # Eos # Baso # Seg Neutrophils % Seg Neutrophils # Sodium Potassium Chloride Carbon Dioxide Anion Gap BUN Creatinine Estimated GFR BUN/Creatinine Ratio Glucose POC Glucose Calcium Troponin T < 0.010
[2018-11-07] MEDS: NEURONTIN PO PRN (17:49)
[2018-11-07] MEDS: LANTUS SUB-Q SCH (22:11)
[2018-11-08] MEDS: PERCOCET 5/325 PO PRN ×3 (03:00→22:13)
[2018-11-08] MEDS: LEVAQUIN 750MG/150ML 750 MG/150 ML BAG IV SCH (05:43)
[2018-11-08] MEDS: HumaLOG SUB-Q SCH ×3 (09:03→17:22)
[2018-11-08] MEDS: DUONEB *Not for PRN Use IH SCH ×3 (09:28→21:26)
[2018-11-08] MEDS ORDERED: LEXISCAN IV ONE ×2 (09:39→09:40)
--- NOTE | 2018-11-08 12:07 | Consultation ---
Addendum entered and electronically signed by KARLA WHYTE MD 11/08/18 12:17: Atypical chest pain (patient compliant with DAPT) MPI showing reversible apical and septal wall defect - unchanged from previous MPI done in 2017 LVEF 47% Negative Mateus ECG showing no ischemic changes when compared to previous but evidence of sinus tachycardia History of coronary artery disease s/p PCI to RCA and Cx Positive infiltrate on CXR, fever and leukocytosis consistent with community acquired pneumonia Hoarseness and dysphagia s/p barium swallow and GI evaluation Type II DM Recommendations: Recommend conservative medical therapy for atypical chest pain and abnormal MPI for the time being and given comorbid conditions Continue DAPT, statins. Add Imdur therapy Original Note: History of Present Illness Consult date: 11/08/18 Consult reason: other (Abnormal MPI) History of present illness: Patient is a 68 year old woman with 2 vessel coronary artery disease who presented 11/06 with shortness of breath, coughs, fever and complaints of chest pain. Chest x-ray suspects left lower lobe pneumonia. Cardiac enzymes were normal and her ECG is sinus tachycardia with LVH of repolarization abnormalities. Patient continued to complain of chest pain and today, underwent a persantine thallium test ordered by the primary hospitalist team. Past History Past Medical History: CAD, diabetes, hypertension Social history: no significant social history Family history: no significant family history Medications and Allergies Allergies Allergy/AdvReac Type Severity Reaction Status Date / Time metformin Allergy Unknown Verified 05/18/16 21:30 Home Medications Medication Instructions Recorded Confirmed Last Taken Type AtorvaSTATin [Lipitor] 40 mg PO QHS #30 tablet 03/13/16 11/06/18 1 Day Ago Rx ~09/21/16 40 Clopidogrel [Plavix] 75 mg PO DAILY #30 tablet 03/13/16 11/06/18 1 Day Ago Rx ~09/21/16 75 Insulin Glargine,Hum.rec.anlog 18 unit SQ QHS #1000 units 03/13/16 11/06/18 1 Day Ago Rx [Lantus Solostar] ~09/21/16 18 Insulin Lispro [HumaLOG VIAL] 15 unit SQ TIDAC #1000 units 03/13/16 11/06/18 1 Day Ago Rx ~09/21/16 15 Lisinopril [Zestril TAB] 10 mg PO QDAY #30 tablet 03/13/16 11/06/18 1 Day Ago Rx ~09/21/16 10 Aspirin [Aspirin TAB] 81 mg PO QDAY 11/06/18 11/06/18 Unknown History Gabapentin [Neurontin] 300 mg PO Q6H PRN 11/07/18 11/07/18 Unknown History Active Meds: Active Medications Acetaminophen (Tylenol) 650 mg PO Q4H PRN PRN Reason: Pain MILD(1-3)/Fever >100.5/[place]CHELL Last Admin: 11/06/18 20:26 Dose: 650 mg Documented by: Albuterol (Proventil) 2.5 mg IH Q4HRT PRN PRN Reason: Shortness Of Breath Albuterol/Ipratropium (Duoneb *Not For Prn Use*) 1 ampul IH TIDRT [facility] Last Admin: 11/08/18 09:28 Dose: Not Given Documented by: Atorvastatin Calcium (Lipitor) 40 mg PO QHS [facility] Last Admin: 11/07/18 22:11 Dose: 40 mg Documented by: Clopidogrel Bisulfate (Plavix) 75 mg PO QDAY [facility] Dextrose (D50w (25gm) Syringe) 50 ml IV PRN PRN PRN Reason: Hypoglycemia Enoxaparin Sodium (Lovenox) 40 mg SUB-Q QDAY@1000 [facility] Last Admin: 11/07/18 09:56 Dose: 40 mg Documented by: Gabapentin (Neurontin) 300 mg PO Q6H PRN PRN Reason: Pain, Mild (1-3) Last Admin: 11/07/18 17:49 Dose: 300 mg Documented by: Levofloxacin/Dextrose (Levaquin 750mg/150ml) 750 mg in 150 mls @ 100 mls/hr IV Q24HR@0600 [facility] Last Admin: 11/08/18 05:43 Dose: 100 mls/hr Documented by: Sodium Chloride (Nacl 0.45% 1000 Ml) 1,000 mls @ 50 mls/hr IV DIRECT [facility] Insulin Glargine (Lantus) 18 units SUB-Q QHS [facility] Last Admin: 11/07/18 22:11 Dose: 18 units Documented by: Insulin Human Lispro (Humalog) 15 unit SUB-Q TIDAC [facility] Last Admin: 11/08/18 09:03 Dose: 15 unit Documented by: Lisinopril (Zestril) 10 mg PO QDAY [facility] Last Admin: 11/07/18 09:56 Dose: 10 mg Documented by: Ondansetron HCl (Zofran) 4 mg IV Q8H PRN PRN Reason: Nausea And Vomiting Oxycodone/Acetaminophen (Percocet 5/325) 1.5 tab PO Q6H PRN PRN Reason: Pain, Moderate (4-6) Last Admin: 11/08/18 03:00 Dose: 1.5 tab Documented by: Sodium Chloride (Sodium Chloride Flush Syringe 10 Ml) 10 ml IV BID [facility] Last Admin: 11/07/18 22:11 Dose: 10 ml Documented by: Sodium Chloride (Sodium Chloride Flush Syringe 10 Ml) 10 ml IV PRN PRN PRN Reason: LINE FLUSH Physical Examination Vital Signs Temp Pulse Resp BP Pulse Ox 99.7 F H 114 H 18 157/93 98 11/05/18 22:45 11/05/18 22:45 11/05/18 22:45 11/05/18 22:45 11/05/18 22:45 General appearance: no acute distress HEENT: Positive: PERRL Cardiac: Positive: Tachycardia Lungs: Positive: Decreased Breath Sounds Neuro: Positive: Grossly Intact Results 11/07/18 07:58 11/07/18 07:58 Assessment and Plan Pneumonia UTI Chest pain Hx of CAD Diabetes mellitus Mixed Hyperlipidemia
[2018-11-08] MEDS: PLAVIX PO SCH (13:22)
[2018-11-08] MEDS: ZESTRIL PO SCH (13:22)
[2018-11-08] MEDS: SODIUM CHLORIDE FLUSH SYRINGE 10 ML IV SCH ×2 (13:23→22:15)
[2018-11-08] MEDS: LOVENOX SUB-Q SCH (13:23)
--- NOTE | 2018-11-08 14:22 | Discharge Summary ---
Providers - Providers Date of Admission: 11/06/18 03:49 Attending physician: LIBRA DESIR MD 11/06/18 05:07 Consult to Physician [CONS] Routine Comment: MICHAEL Consulting Provider: JAYDEN DRAKE Physician Instructions: CONSULT WAS CALLED TO . Reason For Exam: dysphagia Primary care physician: [facility], Hospitalization Reason for admission: atypical chest pain Condition: Stable Hospital course: 68-year-old in with a history of hypertension, diabetes, breast cancer, COPD, coronary artery disease, CHF comes to the emergency room with complaints of hoarseness for 3 weeks. Also complaining of a cough productive of white rough:, Fever and chills. She had diarrhea for 3 days which is now resolved. Also c omplaining of food getting stuck in her throat, feels like she's going to choke. 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 Although she reports depression she denies any suicidal or homicidal ideation. Patient proceeded to have stress test done and cardiology did see her and recommended conservative management. Per cardiology Atypical chest pain (patient compliant with DAPT) MPI showing reversible apical and septal wall defect - unchanged from previous MPI done in 2017 LVEF 47% Negative Mateus ECG showing no ischemic changes when compared to previous but evidence of sinus tachycardia History of coronary artery disease s/p PCI to RCA and Cx Positive infiltrate on CXR, fever and leukocytosis consistent with community acquired pneumonia Hoarseness and dysphagia s/p barium swallow and GI evaluation Type II DM Recommendations: Recommend conservative medical therapy for atypical chest pain and abnormal MPI for the time being and given comorbid conditions Continue DAPT, statins. Add Imdur therapy Patient was was also seen by GI with recommendation for outpatient eval Patient was also treated for Pneumonia and recommended to follow with PCP and psych outpatient in addition to the GI doctors. She has a dental appointment planned. Discharge Diagnosis Sepsis secondary to left lower lobe pneumonia Left LOBAR pNEUMONIA Atypical chest pain Secondary to odyanophagia Odyanophagia with pain on swallowing Hypertension Diabetes mellitus his hyperglycemia Disposition: [id number] HOME UNDER HOME [facility] Time spent for discharge: 35 MINS Core Measure Documentation - Palliative Care Palliative Care/ Comfort Measures: Not Applicable - Core Measures Any of the following diagnoses?: none Exam - Physical Exam Narrative exam: VITAL SIGNS: Reviewed. GENERAL: The patient appeared well nourished and normally developed. Vital signs as documented. HEAD: No signs of head trauma. EYES: Pupils are equal. Extraocular motions intact. EARS: Hearing grossly intact. MOUTH: Poor dental hygiene NECK: No adenopathy, no JVD. CHEST: Chest with clear breath sounds bilaterally. No wheezes, rales, or rhonchi. CARDIAC: Regular rate and rhythm. S1 and S2, without murmurs, gallops, or rubs. VASCULAR: No Edema. Peripheral pulses normal and equal in all extremities. ABDOMEN: Soft, without detectable tenderness. No sign of distention. No rebound or guarding, and no masses palpated. Bowel Sounds normal. MUSCULOSKELETAL: Good range of motion of all major joints. Extremities without clubbing, cyanosis or edema. NEUROLOGIC EXAM: Alert and oriented x 3. No focal sensory or strength deficits. Speech normal. Follows commands. PSYCHIATRIC: Mood normal. SKIN: No rash or lesions. - Constitutional Vitals: Temp Pulse Resp BP Pulse Ox 99.7 F H 117 H 20 128/70 97 11/08/18 13:19 11/08/18 13:22 11/08/18 13:19 11/08/18 13:22 11/08/18 13:19 Plan Activity: advance as tolerated, fall precautions Diet: low fat Special Instructions: record daily weights, record daily BP diary Follow up with: ESEQUIEL MELCHOR MD [Staff Physician] - 7 Days AMISH JAUREGUI MD [Referring] - 3-5 Days PAZ PETERSEN MD [Staff Physician] - 7 Days Prescriptions: Amoxicillin/Potassium Clav [Augmentin 875-125 Tablet] 1 each PO BID #10 tablet ISOSORBIDE MONOnitrate [Imdur ER] 30 mg PO QDAY #30 tablet Nystas/Diphen/Xyl Visc/Mylanta [Magic Mouthwash] 30 ml MM Q4H PRN 5 Days ml PRN Reason: Dyspepsia
[2018-11-08] MEDS ORDERED: COREG PO ONE (17:00)
--- NOTE | 2018-11-08 19:49 | Treadmill Report ---
INDICATION: Chest pain. ORDERING PHYSICIAN: Mike Mojica MD FINDINGS: There is evidence of irac-ee-dohvxraf partially reversible apical wall defect. There is also evidence of a small moderately reversible septal wall defect. The left ventricular ejection fraction is measured at 47% with evidence of mild global left ventricular hypokinesis. CONCLUSION: 1. Abnormal myocardial perfusion scan revealing a partially reversible mild to moderate in size apical wall defect as well as a moderately reversible small size septal wall defect. 2. Mild global left ventricular hypokinesis with an ejection fraction estimated at 47%. 3. Intermediate risk myocardial perfusion study associated with a 1-3% cardiovascular event rate in the next 1 year. JOB# [id number] ZARIA/IGOR
[2018-11-08] MEDS: LANTUS SUB-Q SCH (22:14)
[2018-11-09] MEDS: LEVAQUIN 750MG/150ML 750 MG/150 ML BAG IV SCH ×2 (06:00→07:10)
[2018-11-09] MEDS: HumaLOG SUB-Q SCH ×3 (07:25→18:17)
[2018-11-09] MEDS ORDERED: NACL 0.9% 1000 ML 1,000 ML IV ONE ×2 (08:00→13:00)
[2018-11-09] MEDS: DUONEB *Not for PRN Use IH SCH ×3 (08:06→20:33)
[2018-11-09] MEDS ORDERED: COREG PO SCH ×2 (10:00)
[2018-11-09] MEDS: IMDUR PO SCH (11:19)
[2018-11-09] MEDS: HALFPRIN EC PO SCH (11:19)
[2018-11-09] MEDS: PLAVIX PO SCH (11:19)
[2018-11-09] MEDS: LOVENOX SUB-Q SCH (11:21)
[2018-11-09] MEDS: PERCOCET 5/325 PO PRN (11:21)
[2018-11-09] MEDS: COREG PO SCH (11:22)
--- NOTE | 2018-11-09 11:24 | Progress Note ---
Addendum entered and electronically signed by ESEQUIEL MELCHOR MD 11/09/18 13:15: Cardiac status is asymptomatic and stable, continue medical therapy and outpatient follow-up as outlined. Original Note: Assessment and Plan Pneumonia UTI Atypical chest pain (patient compliant with DAPT) MPI showing reversible apical and septal wall defect - unchanged from previous MPI done in 2017 LVEF 47% Negative Mateus ECG showing no ischemic changes when compared to previous but evidence of sinus tachycardia History of coronary artery disease s/p PCI to RCA and Cx Hoarseness and dysphagia s/p barium swallow and GI evaluation Type II DM Recommendations: Continue medical therapy for coronary artery disease. Stable cardiac saleh. Patient will follow up with Dr Cagle as scheduled November 23 at 310p. Subjective Date of service: 11/09/18 Principal diagnosis: dysphagia Interval history: Patient is resting in bed comfortably. Stable sinus rhythm on telemetry. Objective Vital Signs Temp Pulse Pulse Pulse Pulse Resp Resp 11/09/18 08:13 109 H 11/09/18 08:09 11/09/18 08:00 112 H 11/09/18 07:07 99.4 F 118 H 18 11/09/18 01:59 98.3 F 107 H 20 11/09/18 00:47 113 H 11/08/18 23:13 20 11/08/18 22:13 20 11/08/18 22:00 110 H 11/08/18 21:40 107 H 20 11/08/18 21:29 11/08/18 21:28 104 H 20 11/08/18 20:20 104 H 11/08/18 20:19 100.3 F H 109 H 20 11/08/18 14:25 11/08/18 13:45 116 H 18 11/08/18 13:25 112 H 18 11/08/18 13:22 117 H 11/08/18 13:19 99.7 F H 117 H 20 11/08/18 13:15 99.1 F 118 H 20 Resp BP BP Pulse Ox 11/09/18 08:13 15 11/09/18 08:09 95 11/09/18 08:00 14 11/09/18 07:07 108/61 95 11/09/18 01:59 115/53 95 11/09/18 00:47 11/08/18 23:13 11/08/18 22:13 11/08/18 22:00 97 11/08/18 21:40 11/08/18 21:29 97 11/08/18 21:28 11/08/18 20:20 98 11/08/18 20:19 100/53 97 11/08/18 14:25 96 11/08/18 13:45 11/08/18 13:25 11/08/18 13:22 128/70 11/08/18 13:19 128/70 97 11/08/18 13:15 128/70 98 - Physical Examination General: No Apparent Distress HEENT: Positive: PERRL Cardiac: Positive: Reg Rate and Rhythm Lungs: Positive: Decreased Breath Sounds Neuro: Positive: Grossly Intact
[2018-11-09] MEDS: ZESTRIL PO SCH (13:20)
[2018-11-09] MEDS: SODIUM CHLORIDE FLUSH SYRINGE 10 ML IV SCH (13:21)
--- NOTE | 2018-11-09 14:02 | Progress Note ---
Assessment and Plan Assessment and plan: 68-year-old in with a history of hypertension, diabetes, breast cancer, COPD, coronary artery disease, CHF comes to the emergency room with complaints of hoarseness for 3 weeks. Also complaining of a cough productive of white rough:, Fever and chills. She had diarrhea for 3 days which is now resolved. Also complaining of food getting stuck in her throat, feels like she's going to choke Sepsis secondary to left lower lobe pneumonia - Evidenced by leukocytosis and fever - Continue IV Levaquin - Cultures with no growth. Dysphagia, with pain on swallowing -GI following. -GI consulted and will do EGD -Continue Plavix outpatient EGD planned. -barium swallow reports some spasm, await GI re-evaluation Hypertension -Continue all medications Diabetes mellitus his hyperglycemia -Uncontrolled -We'll check A1c -We'll resume home dose of insulin. Atypical Chest pain- Likely secondary to GERD, patient has underlying CAD but is compliant with DAPT and continue current managment with the addition to IMDUR. Patient can have plavix held and restarted prior to Procedure- Her MPI was 2 years ago in 2017 CAD- Continue current management Chronic Diastolic Heart failure with LVEF 47% DVT prophylaxis -continue Lovenox Had extensive discussed with patient and her daughter. Will monitor patient one additional day due to Nose bleed History Interval history: Patients seen and examined, still complaints of oral pain. Plans to follow with dentist outpatient. Otherwise no new complaints. tolerating DIET. Had a little nose bleed this morning. Hospitalist Physical - Physical exam Narrative exam: VITAL SIGNS: Reviewed. GENERAL: The patient appeared well nourished and normally developed. Vital signs as documented. HEAD: No signs of head trauma. EYES: Pupils are equal. Extraocular motions intact. EARS: Hearing grossly intact. MOUTH: Poor dental hygiene NECK: No adenopathy, no JVD. CHEST: Chest with clear breath sounds bilaterally. No wheezes, rales, or rhonchi. CARDIAC: Regular rate and rhythm. S1 and S2, without murmurs, gallops, or rubs. VASCULAR: No Edema. Peripheral pulses normal and equal in all extremities. ABDOMEN: Soft, without detectable tenderness. No sign of distention. No rebound or guarding, and no masses palpated. Bowel Sounds normal. MUSCULOSKELETAL: Good range of motion of all major joints. Extremities without clubbing, cyanosis or edema. NEUROLOGIC EXAM: Alert and oriented x 3. No focal sensory or strength deficits. Speech normal. Follows commands. PSYCHIATRIC: Mood normal. SKIN: No rash or lesions. - Constitutional Vitals: Temp Pulse Resp BP Pulse Ox 99.4 F 109 H 15 108/61 95 11/09/18 07:07 11/09/18 08:13 11/09/18 08:13 11/09/18 07:07 11/09/18 08:09 General appearance: Present: no acute distress Results - Labs CBC & Chem 7: 11/07/18 07:58 11/07/18 07:58 Labs: Laboratory Last Values WBC 12.8 K/mm3 (4.5-11.0) H 11/07/18 07:58 RBC 3.70 M/mm3 (3.65-5.03) 11/07/18 07:58 Hgb 11.0 gm/dl (10.1-14.3) 11/07/18 07:58 Hct 33.1 % (30.3-42.9) 11/07/18 07:58 MCV 90 fl (79-97) 11/07/18 07:58 MCH 30 pg (28-32) 11/07/18 07:58 MCHC 33 % (30-34) 11/07/18 07:58 RDW 13.2 % (13.2-15.2) 11/07/18 07:58 Plt Count 176 K/mm3 (140-440) 11/07/18 07:58 Lymph % (Auto) 14.4 % (13.4-35.0) 11/07/18 07:58 Owen % (Auto) 5.3 % (0.0-7.3) 11/07/18 07:58 Eos % (Auto) 1.6 % (0.0-4.3) 11/07/18 07:58 Baso % (Auto) 0.3 % (0.0-1.8) 11/07/18 07:58 Lymph # 1.8 K/mm3 (1.2-5.4) 11/07/18 07:58 Owen # 0.7 K/mm3 (0.0-0.8) 11/07/18 07:58 Eos # 0.2 K/mm3 (0.0-0.4) 11/07/18 07:58 Baso # 0.0 K/mm3 (0.0-0.1) 11/07/18 07:58 Seg Neutrophils % 78.4 % (40.0-70.0) H 11/07/18 07:58 Seg Neutrophils # 10.0 K/mm3 (1.8-7.7) H 11/07/18 07:58 Sodium 135 mmol/L (137-145) L 11/07/18 07:58 Potassium 4.0 mmol/L (3.6-5.0) 11/07/18 07:58 Chloride 91.9 mmol/L (98-107) L 11/07/18 07:58 Carbon Dioxide 29 mmol/L (22-30) D 11/07/18 07:58 Anion Gap 18 mmol/L 11/07/18 07:58 BUN 15 mg/dL (7-17) 11/07/18 07:58 Creatinine 1.1 mg/dL (0.7-1.2) 11/07/18 07:58 Estimated GFR 60 ml/min 11/07/18 07:58 BUN/Creatinine Ratio 14 % 11/07/18 07:58 Glucose 285 mg/dL (65-100) H 11/07/18 07:58 POC Glucose 181 (70-105) H 11/09/18 11:12 Hemoglobin A1c 12.5 % (4-6) H 11/06/18 07:50 Calcium 9.5 mg/dL (8.4-10.2) 11/07/18 07:58 Total Bilirubin 0.30 mg/dL (0.1-1.2) 11/06/18 01:06 AST 23 units/L (5-40) 11/06/18 01:06 ALT 13 units/L (7-56) 11/06/18 01:06 Alkaline Phosphatase 139 units/L (35-129) H 11/06/18 01:06 Troponin T < 0.010 ng/mL (0.00-0.029) 11/07/18 19:23 Total Protein 8.1 g/dL (6.3-8.2) 11/06/18 01:06 Albumin 3.7 g/dL (3.9-5) L 11/06/18 01:06 Albumin/Globulin Ratio 0.8 % 11/06/18 01:06 Urine Color Yellow (Yellow) 11/06/18 03:40 Urine Turbidity Clear (Clear) 11/06/18 03:40 Urine pH 5.0 (5.0-7.0) 11/06/18 03:40 Ur Specific [place] 1.015 (1.003-1.030) 11/06/18 03:40 Urine Protein <15 mg/dl mg/dL (Negative) 11/06/18 03:40 Urine Glucose (UA) 50 mg/dL (Negative) 11/06/18 03:40 Urine Ketones Neg mg/dL (Negative) 11/06/18 03:40 Urine Blood Neg (Negative) 11/06/18 03:40 Urine Nitrite Neg (Negative) 11/06/18 03:40 Urine Bilirubin Neg (Negative) 11/06/18 03:40 Urine Urobilinogen < 2.0 mg/dL (<2.0) 11/06/18 03:40 Ur Leukocyte Esterase Mod (Negative) 11/06/18 03:40 Urine WBC (Auto) 11.0 /HPF (0.0-6.0) H 11/06/18 03:40 Urine RBC (Auto) 2.0 /HPF (0.0-6.0) 11/06/18 03:40 U Epithel Cells (Auto) 3.0 /HPF (0-13.0) 11/06/18 03:40 Urine Bacteria (Auto) 1+ /HPF (Negative) 11/06/18 03:40 Ur Transition Epith Cell 1 /HPF 11/06/18 03:40 Urine Mucus Few /HPF 11/06/18 03:40 Nutrition/Malnutrition Assess - Dietary Evaluation Nutrition/Malnutrition Findings: Nutrition Notes Start: 11/06/18 16:00 Freq: Status: Active Protocol: Document 11/06/18 16:00 EB (Rec: 11/06/18 16:13 [id number]) Co-Sign 11/06/18 16:00 Nutrition Notes Need for Assessment generated from: fourth mate Initial or Follow up Brief Note Current Diagnosis COPD Coronary Artery Disease Diabetes Hypertension Heart Failure Other Pertinent Diagnosis Breast CA Current Diet NPO Labs/Tests Reviewed Pertinent Medications Reviewed Height 5 ft 3 in Weight 69 kg [place] Body Weight (kg) 52.27 BMI 26.9 Subjective/Other Information Pt screened for new onset DM. Pt reports she has had DM for past several years and has been managing it via medication and is aware of correct diet to compliment medication mangagment. Nutrition Intervention Revisit per MD consult or patient Sign Off request:
[2018-11-09] MEDS: NEURONTIN PO PRN (15:05)
[2018-11-09] MEDS: LANTUS SUB-Q SCH (22:33)
[2018-11-10 06:08] LABS: Hematocrit 32.1 % (30.3-42.9); Hemoglobin 10.9 gm/dl (10.1-14.3); Mean Corpuscular HGB Conc 34 % (30-34); Mean Corpuscular Volume 90 fl (79-97); Platelet Count 201 K/mm3 (140-440); Red Blood Count 3.58 M/mm3 (3.65-5.03); Red Cell Distribution Width 13.3 % (13.2-15.2)
[2018-11-10 06:43] LABS: Calcium 9.4 mg/dL (8.4-10.2)
[2018-11-10] MEDS: DUONEB *Not for PRN Use IH SCH (07:34)
[2018-11-10 08:01] VITALS: BP 113/54
[2018-11-10] MEDS: HumaLOG SUB-Q SCH (09:00)
[2018-11-10] MEDS: SODIUM CHLORIDE FLUSH SYRINGE 10 ML IV SCH (09:01)
[2018-11-10] MEDS: IMDUR PO SCH (09:02)
[2018-11-10] MEDS: LOVENOX SUB-Q SCH (09:02)
[2018-11-10] MEDS: HALFPRIN EC PO SCH (09:03)
[2018-11-10] MEDS: PLAVIX PO SCH (09:03)
[2018-11-10] MEDS: COREG PO SCH (09:03)
[2018-11-10] MEDS: ZESTRIL PO SCH (09:04)
[2018-11-10] MEDS: PERCOCET 5/325 PO PRN (09:56)
[2018-11-10] MEDS ORDERED: LEVAQUIN PO SCH (10:00)
--- NOTE | 2018-11-10 14:28 | Discharge Summary ---
Providers - Providers Date of Admission: 11/06/18 03:49 Attending physician: LIBRA DESIR MD 11/06/18 05:07 Consult to Physician [CONS] Routine Comment: MICHAEL Consulting Provider: JAYDEN DRAKE Physician Instructions: CONSULT WAS CALLED TO Reason For Exam: dysphagia 11/09/18 13:45 Occupational Therapy Evaluate and Treat [CONS] Routine Comment: Reason For Exam: Debility Physical Therapy Evaluation and Treat [CONS] Routine Comment: Reason For Exam: DEBILITY [facility] Reason for admission: ODYANOPHAGIA Condition: Stable Hospital course: 68-year-old female with a history of hypertension, diabetes, breast cancer, COPD, coronary artery disease, CHF comes to the emergency room with complaints of hoarseness for 3 weeks. Also complaining of a cough productive of white rough:, Fever and chills. She had diarrhea for 3 days which is now resolved. Also complaining of food getting stuck in her throat, feels like she's going to choke. 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 Although she reports depression she denies any suicidal or homicidal ideation. Patient proceeded to have stress test done and cardiology did see her and recommended conservative management. In respect to dental procedure. Patietn advised to follow with cardiology outpatient for clearnce. Per cardiology Atypical chest pain (patient compliant with DAPT) MPI showing reversible apical and septal wall defect - unchanged from previous MPI done in 2017 LVEF 47% Negative Mateus ECG showing no ischemic changes when compared to previous but evidence of sinus tachycardia History of coronary artery disease s/p PCI to RCA and Cx Positive infiltrate on CXR, fever and leukocytosis consistent with community acquired pneumonia Hoarseness and dysphagia s/p barium swallow and GI evaluation Type II DM Recommendations: Recommend conservative medical therapy for atypical chest pain and abnormal MPI for the time being and given comorbid conditions Continue DAPT, statins. Add Imdur therapy Patient was was also seen by GI with recommendation for outpatient eval Patient was also treated for Pneumonia and recommended to follow with PCP and psych outpatient in addition to the GI doctors. She has a dental appointment planned. Discharge Diagnosis Sepsis secondary to left lower lobe pneumonia Left LOBAR pNEUMONIA Atypical chest pain Secondary to odyanophagia Odyanophagia with pain on swallowing Hypertension Diabetes mellitus his hyperglycemia cAD- Continue current management Chronic Diastolic Heart failure with LVEF 47% Disposition: [id number] HOME UNDER [facility] Time spent for discharge: 35 MINS Core Measure Documentation - Palliative Care Palliative Care/ Comfort Measures: Not Applicable - Core Measures Any of the following diagnoses?: none Exam - Physical Exam Narrative exam: VITAL SIGNS: Reviewed. GENERAL: The patient appeared well nourished and normally developed. Vital signs as documented. HEAD: No signs of head trauma. EYES: Pupils are equal. Extraocular motions intact. EARS: Hearing grossly intact. MOUTH: Poor dental hygiene NECK: No adenopathy, no JVD. CHEST: Chest with clear breath sounds bilaterally. No wheezes, rales, or rhonchi. CARDIAC: Regular rate and rhythm. S1 and S2, without murmurs, gallops, or rubs. VASCULAR: No Edema. Peripheral pulses normal and equal in all extremities. ABDOMEN: Soft, without detectable tenderness. No sign of distention. No rebound or guarding, and no masses palpated. Bowel Sounds normal. MUSCULOSKELETAL: Good range of motion of all major joints. Extremities without clubbing, cyanosis or edema. NEUROLOGIC EXAM: Alert and oriented x 3. No focal sensory or strength deficits. Speech normal. Follows commands. PSYCHIATRIC: Mood normal. SKIN: No rash or lesions. - Constitutional Vitals: Temp Pulse Resp BP Pulse Ox 98.7 F 105 H 18 113/54 95 11/10/18 07:50 11/10/18 10:00 11/10/18 07:50 11/10/18 09:04 11/10/18 07:50 Plan Activity: advance as tolerated Follow up with: ESEQUIEL MELCHOR MD [Staff Physician] - 7 Days PAZ PETERSEN MD [Staff Physician] - 7 Days AMISH JAUREGUI MD [Referring] - 3-5 Days Prescriptions: Amoxicillin/Potassium Clav [Augmentin 875-125 Tablet] 1 each PO BID #10 tablet Carvedilol [Coreg] 3.125 mg PO BID #60 tablet ISOSORBIDE MONOnitrate [Imdur ER] 30 mg PO QDAY #30 tablet Nystas/Diphen/Xyl Visc/Mylanta [Magic Mouthwash] 30 ml MM Q4H PRN 5 Days ml PRN Reason: Dyspepsia
== END 2018-11-10 12:09 | disposition home or self-care (01) | DRG 871 ==
LOC: ED 22:09 → 2B-ACE 11-06 03:49
PROVIDERS: ADMIT Internal Medicine; ATTEND Internal Medicine
DX: A41.9 Sepsis, unspecified organism (principal); J18.1 Lobar pneumonia, unspecified organism; N39.0 Urinary tract infection, site not specified; I50.32 Chronic diastolic (congestive) heart failure; E11.65 Type 2 diabetes mellitus with hyperglycemia; R13.10 Dysphagia, unspecified; J44.9 Chronic obstructive pulmonary disease, unspecified; I25.10 Atherosclerotic heart disease of native coronary artery without angina pectoris; I11.0 Hypertensive heart disease with heart failure; R07.89 Other chest pain; E78.2 Mixed hyperlipidemia; Z82.49 Family history of ischemic heart disease and other diseases of the circulatory system; Z79.899 Other long term (current) drug therapy; Z79.4 Long term (current) use of insulin; I25.2 Old myocardial infarction; Z95.0 Presence of cardiac pacemaker; Z79.82 Long term (current) use of aspirin; Z90.49 Acquired absence of other specified parts of digestive tract; Z90.12 Acquired absence of left breast and nipple; Z85.3 Personal history of malignant neoplasm of breast
CPT/HCPCS: 36415; 71046; 74220; 78452; 80048; 80053; 81001; 82962; 83036; 84484; 85025; 85027; 87040; 90471; 90686; 90732; 93005; 93010; 93017; 94640; 94760; G0378; A9270-GY; A9502; G0008; J1650; J1815; J1956; J2785; J7030